=== PATIENT | male | born 1955 | race Caucasian/White ===

== ENCOUNTER → 2018-09-11 | Outpatient (CLI) | payer BC ==
--- NOTE | 2018-09-11 16:49 | Diagnostic Imaging Report ---
CLINICAL INDICATION: Patient fell this morning with pain in left shoulder. EXAM: X-ray of the left shoulder, three views including scapular Y view. COMPARISON: None. FINDINGS: There is no acute fracture or dislocation. There are moderate degenerative spurs and chronic calcifications involving the left acromioclavicular joint. There is subchondral cystic area involving the proximal left humeral head. There is bony hypertrophy involving the inferolateral aspect of the left clavicle which appears chronic. IMPRESSION: 1: There is no acute fracture or dislocation. 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 Dictated by: Dictated on workstation # [id number]
== END ==
LOC: RAD FS 15:48
PROVIDERS: ATTEND Nurse Practitioner
DX: M19.012 Primary osteoarthritis, left shoulder (principal); W19.XXXA Unspecified fall, initial encounter
CPT/HCPCS: 73030